=== PATIENT | male | born 1975 | race Hispanic/Latino ===

== ENCOUNTER 2023-10-20 16:37 | Emergency (ER) | payer OTHER ==
[2023-10-20 17:13] LABS: #Basophils 0.1 thou/uL (0.0-0.2); #Monocytes 0.7 thou/uL (0.11-0.59); #Neutrophils 7.2 thou/uL (1.40-6.50); %Basophils 0.8 % (0.0-1.0); %Eosinophils 0.3 % (0.0-10.0); %Lymphocytes 27.4 % (21.0-51.0); %Monocytes 6.5 % (0.0-10.0); Hematocrit 60.8 % (42.0-52.0); Hemoglobin 18.9 g/dL (14.0-18.0); Mean Corpuscular HGB CONC 31.1 g/dL (32.0-36.0); Mean Corpuscular Hemoglobin 26.2 pg (27.0-31.0); Mean Corpuscular Volume 84.2 fl (78.0-98.0); Mean Platelet Volume 7.9 fL (7.4-10.4); Platelet Count 349 10x3/uL (130-400); RBC Distribution Width 13.7 % (11.5-14.5); Red Blood Cell (RBC) Count Greater than 7.09 mill/uL (4.70-6.10); White Blood Cell (WBC) Count 11.1 10x3/uL (4.8-10.8)
[2023-10-20] MEDS ORDERED: Dicyclomine 20 MG/2 ML VIAL ONE (17:15)
[2023-10-20] MEDS ORDERED: Famotidine/PF 20 mg/2ml Vial ONE (17:16)
[2023-10-20] MEDS ORDERED: Ondansetron PF 4 MG/2 ML Vial ONE (17:16)
[2023-10-20] MEDS ORDERED: Lactated Ringer's 2,000 ML ONE (17:16)
[2023-10-20 17:34] LABS: ALT (SGPT) 62 U/L (8-55); AST (SGOT) 30 U/L (5-34); Albumin 4.5 g/dL (3.5-5.0); Alkaline Phosphatase 138 U/L (40-110); Anion Gap 30 mmol/L (10-20); BUN (Urea Nitrogen) 21 mg/dL (8.9-20.6); Bilirubin, Total 1.2 mg/dL (0.2-1.2); CK (CPK) 62 U/L (30-200); Calc. Creatinine Clearance 0 mL/min (70-130); Carbon Dioxide 15 mmol/L (22-29); Chloride 96 mmol/L (98-107); Estimated GFR 67; Globulin 4.7 g/dL (2.4-3.5); Glucose 208 mg/dL (70-105); Lipase 19 U/L (8-78); Magnesium 2.1 mg/dL (1.6-2.6); Potassium 3.5 mmol/L (3.5-5.1); Protein, Total 9.2 g/dL (6.0-8.3); Sodium 137 mmol/L (136-145)
[2023-10-20 17:40] LABS: Base Excess-Venous -3.1 mmol/L (-2.0 to 3.0); Bicarbonate (HCO3v) 20.3 mmol/L (22.0-28.0); CO2 Tension (PvCO2) 32.4 mmHg (42.0-51.0); Calcium, Ionized 0.99 mmol/L (1.15-1.33); Chloride 103 mmol/L (98-107); Hemoglobin - Calc 21.4 g/dL (14.0-18.0); Potassium 3.5 mmol/L (3.5-5.1); Sodium 135 mmol/L (138-145); T. Carbon Dioxide 21.3 mmol/L (22.0-28.0); vO2 Saturation-calc 88.1 % (60.0-85.0)
[2023-10-20] MEDS ORDERED: INSULIN REGULAR IN 0.9 % NACL 100 ML ONE (17:49)
[2023-10-20] MEDS ORDERED: D5 1/2 NS w/20 mEq KCL 1,000 ML ONE (18:32)
[2023-10-20 19:18] LABS: Bilirubin Small (Negative); Blood, Urine Trace (Negative); Glucose, Urine (Dipstick) 500 mg/dL (Negative); Ketone, Urine > or equal to 80 mg/dL (Negative); Leukocyte Negative (Negative); Nitrite Negative (Negative); Protein, Urine (Dipstick) 30 mg/dL (Neg-Trace); Urobilinogen 0.2 mg/dL (Less than 2); pH, Urine 5.5 (5.0-9.0)
[2023-10-20 19:30] LABS: Clarity Hazy (Clear)
[2023-10-20 19:34] LABS: Specific Gravity, Urine 1.032 (1.002-1.036)
[2023-10-20 19:35] LABS: Bacteria/HPF Rare-Few HPF (None Seen); CAUTI Indications for Culture Pelvic or flank pain; RBC/HPF 0-3 HPF (0-3); Squamous Epithelial 0-3 HPF (0-3); WBC/HPF 0-3 HPF (0-3)
[2023-10-20 19:36] LABS: Urine Culture Reflex No No
[2023-10-20 19:57] LABS: SARS-CoV-2 E Target Negative; SARS-CoV-2 N2 Target Negative; SARS-CoV-2 NAA Rapid Test Not Detected (NotDetected); SARS-CoV-2 RdRP gene Negative
== END 2023-10-20 19:50 | disposition short-term general hospital (02) ==
LOC: MADERS 16:37
DX: E11.10 Type 2 diabetes mellitus with ketoacidosis without coma (principal); K21.9 Gastro-esophageal reflux disease without esophagitis; F17.210 Nicotine dependence, cigarettes, uncomplicated; F17.290 Nicotine dependence, other tobacco product, uncomplicated
CPT/HCPCS: 36416; 71045; 80053; 81001; 82010; 82330; 82550; 82803; 83605; 83690; 83735; 85025; 93005; 94760; 96365; 96368; 96372; 96375; J1815; J2405; J3480; J3490; J7120; U0002